=== PATIENT | female | born 1995 | race Caucasian/White ===

== ENCOUNTER 2018-10-14 04:44 | Inpatient (IN) | payer BC ==
[~2018-10-14] VITALS: Ht 162.6 cm; Wt 65.8 kg
[2018-10-14] MEDS ORDERED: PANTOPRAZOLE 40 MG INJ IV STA (06:18)
[2018-10-14] MEDS ORDERED: METOCLOPRAMIDE 10 MG INJ ONE (07:00)
[2018-10-14] MEDS ORDERED: DEXAMETHASONE 4 MG/ML 5 ML INJ ONE (07:00)
[2018-10-14] MEDS ORDERED: ONDANSETRON 4 MG INJ IV PRN ×3 (08:30→12:00)
[2018-10-14] MEDS ORDERED: ACETAMINOPHEN 325 MG TAB PO PRN ×2 (08:30→09:30)
--- NOTE | 2018-10-14 08:52 | ERD ---
ER Documentation Chief Complaint Chief Complaint woke up & been throwing blood since 0300 HPI 23-year-old female who presents to the emergency room complaining of hematemesis. The patient describes multiple episodes of gross bright red blood and clots in her vomit since this morning. The patient denies any alcohol abuse or history of peptic ulcer disease. She does take Motrin occasionally for a dental issue. She denies any fevers or chills, no melena, no abdominal pain. ROS All systems reviewed and are negative except as per history of present illness. Allergies Allergies: Coded Allergies: No Known Allergy (Unverified , 10/14/18) PMhx/Soc Medical and Surgical Hx: pt denies Medical Hx, pt denies Surgical Hx History of Surgery: No Hx Alcohol Use: Yes Hx Substance Use: No Hx Tobacco Use: No Smoking Status: Never smoker FmHx Family History: No diabetes Physical Exam Vitals Vital Signs Date Temp Pulse Resp B/P (MAP) Pulse Ox O2 O2 Flow FiO2 Time Delivery Rate 10/14/18 66 16 129/82 100 Room Air 07:00 (98) 10/14/18 97.5 92 22 139/80 99 04:53 (99) Physical Exam General: Well developed, well nourished, no acute distress Head: Normocephalic, atraumatic. Eyes: Pupils equally reactive, EOM intact ENT: Moist mucous membranes Neck: Supple, no lymphadenopathy Respiratory: Lungs clear bilaterally, no distress Cardiovascular: RRR, no murmurs, rubs, or gallops Abdominal: Soft, non-tender, non-distended, no peritoneal signs : Deferred MSK: No edema, no unilateral swelling, 5/5 strength Neurologic: Alert and oriented, moving all extremities, normal speech, no focal weakness, no cerebellar signs Skin: No rash Psych: Normal mood Result Diagram: 10/14/18 0637 10/14/1837 Results 24 hrs Laboratory Tests Test 10/14/18 06:37 10/14/18 06:44 White Blood Count 10.6 10^3/ul Red Blood Count 4.58 10^6/ul Hemoglobin 14.3 g/dl Hematocrit 42.0 % Mean Corpuscular Volume 91.7 fl Mean Corpuscular Hemoglobin 31.2 pg Mean Corpuscular Hemoglobin Concent 34.0 g/dl Red Cell Distribution Width 12.2 % Platelet Count 200 10^3/UL Mean Platelet Volume 12.0 fl Immature Granulocytes % 0.400 % Neutrophils % 81.2 % Lymphocytes % 11.6 % Monocytes % 5.6 % Eosinophils % 0.8 % Basophils % 0.4 % Nucleated Red Blood Cells % 0.0 /100WBC Immature Granulocytes # 0.040 10^3/ul Neutrophils # 8.6 10^3/ul Lymphocytes # 1.2 10^3/ul Monocytes # 0.6 10^3/ul Eosinophils # 0.1 10^3/ul Basophils # 0.0 10^3/ul Nucleated Red Blood Cells # 0.0 10^3/ul Prothrombin Time 11.8 Sec Prothrombin Time Ratio 0.9 INR International Normalized Ratio 0.86 Activated Partial Thromboplast Time 29.2 Sec Sodium Level 144 mmol/L Potassium Level 3.7 mmol/L Chloride Level 106 mmol/L Carbon Dioxide Level 27 mmol/L Anion Gap 11 Blood Urea Nitrogen 11 mg/dl Creatinine 0.53 mg/dl Est Glomerular Filtrat Rate mL/min > 60 mL/min Glucose Level 91 mg/dl Calcium Level 10.0 mg/dl Total Bilirubin 0.1 mg/dl Direct Bilirubin 0.00 mg/dl Indirect Bilirubin 0.1 mg/dl Aspartate Amino Transf (AST/SGOT) 31 IU/L Alanine Aminotransferase (ALT/SGPT) 24 IU/L Alkaline Phosphatase 76 IU/L Troponin I < 0.012 ng/ml Total Protein 8.1 g/dl Albumin 4.8 g/dl Globulin 3.30 g/dl Albumin/Globulin Ratio 1.45 POC Beta HCG, Qualitative NEGATIVE Current Medications Medications Dose Sig/Michelle Start Time Status Last (Trade) Ordered Route PRN Stop Time Admin Dose Reason Admin 40 mg ONCE STAT 10/14/18 DC 10/14/18 Pantoprazole IV 06:18 06:40 (Protonix 10/14/18 06:19 Iv) Ondansetron 4 mg BRIDGE ORDER 10/14/18 HCl (Zofran PRN IV 08:30 Inj) NAUSEA/VOMITI 10/15/18 08:29 NG 650 mg ER BRIDGE 10/14/18 Acetaminophen PRN PO 08:30 (Tylenol .MILD PAIN 10/15/18 08:29 Tab) 1-3 OR TEMP Procedures/MDM LAB INTERPRETATION: I reviewed the laboratory testing and it shows [no evidence of acute process] MEDICAL DECISION MAKING: Patient presents with gross hematemesis. Unclear etiology, consider gastritis versus NSAID. while the patient is hemodynamically stable the patient has showed me pictures of what appears to be somewhat significant bleeding. For this reason I would recommend inpatient hospitalization as a conservative means to manage this patient. The patient's GBS score is reassuring but again, given the significant bleeding that she is showing me observation and GI consultation is appropriate. ER COURSE: * Given the stability of the patient I do not believe that PPI drip is indicated given the recent evidence showing potential harm and unclear benefit. The patient was given a single dose of PPI here in the emergency room setting. * Patient is stable. Hemoglobin is stable. No indication for transfusion. CONSULTATION: [None] DISPOSITION PLAN: Accepting care team and consultations: I discussed the current laboratory data, diagnostic imaging and emergency care provided. Admitting team: Dr. Lopez Admitting team indication: Insurance directed Departure Diagnosis: Primary Impression: Hematemesis Nausea presence: with nausea Qualified Codes: K92.0 - Hematemesis Condition: Stable PAT KENT MD Oct 14, 2018 08:52
[2018-10-14] MEDS ORDERED: SOD CHLORIDE 0.9% 1,000 ML IV SCH (09:17)
[2018-10-14] MEDS ORDERED: NITROGLYCERIN (SL) 0.4 MG TAB SL PRN (09:30)
[2018-10-14] MEDS ORDERED: MAGNESIUM HYDROXIDE 30ML CUP PO PRN (09:30)
[2018-10-14] MEDS ORDERED: HYDROCODONE/APAP (5/325) TAB PO PRN (09:30)
[2018-10-14] MEDS ORDERED: NACL 0.9% 3 ML SYG IV SCH (09:30)
[2018-10-14] MEDS ORDERED: hydrALAzine 20 MG INJ IV PRN (09:30)
[2018-10-14] MEDS ORDERED: DOCUSATE SODIUM 100 MG CAP PO PRN (09:30)
[2018-10-14] MEDS ORDERED: morphine 2 MG INJ IV PRN (09:30)
[2018-10-14] MEDS ORDERED: ALBUTEROL/IPRATROPIUM (NEB) 3 ML AMP HHN PRN (09:30)
[2018-10-14] MEDS ORDERED: LORAZEPAM 2 MG INJ IV PRN (09:30)
[2018-10-14 09:50] VITALS: Ht 162.6 cm; Wt 65.8 kg
[2018-10-14 10:27] VITALS: BP 131/65; PULSE 80; RESP 18
[2018-10-14] MEDS: PANTOPRAZOLE 40 MG INJ IV SCH ×2 (10:55→19:06)
[2018-10-14] MEDS ORDERED: FENTAnyl 50 MCG/ML VIAL ONE (11:26)
[2018-10-14] MEDS ORDERED: LIDOCAINE 2% (SDV) 5 ML INJ ONE (11:26)
[2018-10-14] MEDS ORDERED: PROPOFOL 20 ML ONE (11:26)
[2018-10-14] MEDS ORDERED: MIDAZOLAM 1 MG/ML 2 ML INJ ONE (11:51)
--- NOTE | 2018-10-14 11:56 | PREAC ---
Date/Time of Note Date/Time of Note DATE: 10/14/18 TIME: 11:55 Anesthesia Eval and Record Evaluation Time Pre-Procedure Interview DATE: 10/14/18 TIME: 11:55 Age 23 Sex female NPO: 8 hrs Preoperative diagnosis upper GI bleed Planned procedure EGD Past Medical History Past Medical History: Includes Hepatic: Alcohol abuse GI: GERD Surgery & Anesthesia Issues No known issue Meds Anticoagulation: No Beta Mert within 24 hr: No Reason Beta Mert not given: Pt. not on B-Mert No Active Prescriptions or Reported Meds Current Medications Ondansetron HCl (Zofran Inj) 4 mg BRIDGE ORDER PRN IV NAUSEA/VOMITING; Start 10/14/18 at 08:30; Stop 10/15/18 at 08:29 Acetaminophen (Tylenol Tab) 650 mg ER BRIDGE PRN PO .MILD PAIN 1-3 OR TEMP; Start 10/14/18 at 08:30; Stop 10/15/18 at 08:29 IV Flush (NS 3 ml) 3 ml PER PROTOCOL IV ; Start 10/14/18 at 09:30 Ondansetron HCl (Zofran Inj) 4 mg Q6H PRN IV NAUSEA/VOMITING; Start 10/14/18 at 09:30 Acetaminophen (Tylenol Tab) 650 mg Q6H PRN PO .PAIN 1-3 OR TEMP; Start 10/14/18 at 09:30 Acetaminophen/ Hydrocodone Bitart ([place] (5/325)) 1 tab Q6H PRN PO .MOD PAIN 4- 6; Start 10/14/18 at 09:30 Morphine Sulfate (morphine) 2 mg Q4H PRN IV .SEVERE PAIN 7-10; Start 10/14/18 at 09:30 Docusate Sodium (Colace) 100 mg Q12H PRN PO .CONSTIPATION; Start 10/14/18 at 09:30 Magnesium Hydroxide (Milk Of Mag) 30 ml DAILY PRN PO .CONSTIPATION; Start 10/14/18 at 09:30 Pantoprazole (Protonix Iv) 40 mg BID@0600,1800 IV Last administered on 10/14/18at 10:55; Admin Dose 40 MG; Start 10/14/18 at 09:30 Lorazepam (Ativan) 0.5 mg Q6H PRN IV ANXIETY; Start 10/14/18 at 09:30 Sodium Chloride 1,000 ml @ 100 mls/hr Q10H IV Last administered on 10/14/18at 10:55; Admin Dose 100 MLS/HR; Start 10/14/18 at 09:17 Albuterol/ Ipratropium (Duoneb) 3 ml Q4H RESP THERAPY PRN HHN SHORTNESS OF BR EATH; Start 10/14/18 at 09:30 Hydralazine HCl (Apresoline) 10 mg Q6H PRN IV ELEVATED BLOOD PRESSURE; Start 10/14/18 at 09:30 Nitroglycerin (Nitroglycerin (Sl Tab) 0.4 Mg) 1 tab Q5M PRN SL ANGINA; Start 10/14/18 at 09:30 Meds reviewed: Yes Allergies Coded Allergies: No Known Allergy (Unverified , 10/14/18) Allergies Reviewed: Yes Labs/Studies Labs Reviewed: Reviewed by anesthesiologist Result Diagram: 10/14/18 0637 10/14/18 0637 Laboratory Tests 10/14/18 06:37 Blood Bank Test 10/14/18 06:37 Antibody Screen NEGATIVE Blood Type O POSITIVE test: Negative Pre-procedure Exam Last vitals Vital Signs Date Temp Pulse Resp B/P (MAP) Pulse Ox O2 O2 Flow FiO2 Time Delivery Rate 10/14/18 97.8 80 18 131/65 99 Room Air 10:27 (87) Airway: Adequate mouth opening, Adequate thyromental dist Mallampati: Mallampati III Teeth: Normal Lung: Normal Heart: Normal ASA Physical Status ASA physical status: 2 Emergency: E Planned Anesthetic General/MAC: MAC Planned Pain Management Parenteral pain med Pre-operative Attestations Prior to commencing anesthesia and surgery, the patient was re-evaluated, there was verification of: *The patient's identity *The results of appropriate recent lab work and preoperative vital signs *The above evaluation not changing prior to induction *Anesthetic plan, risk benefits, alternative and complications discussed with patient/family; questions answered; patient/family understands, accepts and wishes to proceed. JOSE CHRISTIANSON MD Oct 14, 2018 11:56
[2018-10-14] MEDS ORDERED: ONDANSETRON 4 MG INJ ONE (11:59)
[2018-10-14] MEDS ORDERED: FENTAnyl 50 MCG/ML VIAL IV PRN (12:00)
[2018-10-14] MEDS ORDERED: DIPHENHYDRAMINE 50 MG INJ IV PRN (12:00)
[2018-10-14] MEDS ORDERED: MEPERIDINE 25 MG INJ IV PRN (12:00)
[2018-10-14] MEDS ORDERED: LEVALBUTEROL (NEB) 1.25 MG/0.5 ML AMP HHN PRN (12:00)
[2018-10-14] MEDS ORDERED: HYDROmorphONE 1 MG/5 ML IV SYRINGE IV PRN (12:00)
[2018-10-14] MEDS ORDERED: MIDAZOLAM 1 MG/ML 2 ML INJ IV PRN (12:00)
[2018-10-14 12:35] VITALS: BP 119/55; PULSE 90
[2018-10-14 12:40] VITALS: BP 112/55; PULSE 77
--- NOTE | 2018-10-14 12:40 | OPPN ---
Date/Time of Note Date/Time of Note DATE: 10/14/18 TIME: 12:37 Proc Note GI Procedure Date 10/14/18 Indication: diagnostic, treatment Pre-procedure Diagnosis Hematemesis Post-procedure Diagnosis Impression: Moderate distal esophagitis. Moderate gastritis. Rule out H. pylori infection. Biopsies obtained. Otherwise normal EGD. Plan: Continue PPI twice daily. Reglan as needed for nausea and vomiting. Monitor H&H and transfuse as necessary. Advance diet as tolerated. Procedure Performed: Endoscopy (With biopsies) Surgeon ARLET TINEO MD See signature line Chain Offbearer none Anesthesia Type: MAC Tourniquet Time none EBL none Transfusion required none Biopsy 1: Gastric body and antrum. Grafts/Implants none Tubes/Drains none Complication(s) none Disposition: PACU Procedure Description After informed consent, with the patient/relatives understanding the procedure, its indications, potential risks and complications, including but not limited to: allergic reaction, bleeding, perforation or infection, and after all pertinent questions were answered to the patients satisfaction, the patient/relatives signed witnessed informed consent. Following this, premedication was administered slowly IV push under careful cardiovascular and respiratory monitoring with pulse oximetry, automatic blood pressure, and hall monitor. Once the sedative effect was achieved the patient was place in the left lateral decubitus, the panendoscope was introduced and advanced under visual control. Careful examination of the upper gastrointestinal tract, both on insertion as well as withdrawal of the instrument disclosing the following findings: ESOPHAGUS: the mucosa of the entire esophagus was carefully examined and showed the following findings: There is mild erythema of the mucosa of the distal esophagus. Otherwise the mucosa appears within normal limits. There is no evidence of varices, neoplasm, or stricture. No Hiatal Hernia identified. STOMACH: Upon entrance to the stomach air was insufflated, the gastric pittman distended normally. The mucosa of the fundus, body and antrum of the stomach was carefully examined both head-on and on retroflexion, and showed the following findings: There is moderate erythema of the mucosa of the body and antrum the stomach. Biopsies were obtained to rule out H. pylori infection. Otherwise the mucosa appears within normal limits with no abnormalities. There is no evidence of ulcers or neoplasm. PYLORUS: The pylorus was carefully examined and showed the following findings: the pylorus appears patent and within normal limits, with no evidence of gastric outlet obstruction. DUODENUM: The duodenal mucosa was carefully examined in the duodenal bulb as well as the second portion of the duodenum and showed the following findings: the mucosa appears unremarkable with no evidence of duodenitis, ulcer or neoplasm. Copies To: CC: ARLET TINEO MD ; ARLET TINEO MD Oct 14, 2018 12:40
[2018-10-14 12:50] VITALS: BP 112/68; PULSE 71; RESP 16
--- NOTE | 2018-10-14 13:02 | CONS ---
Assessment/Plan Assessment/Plan Hospital Course (Demo Recall) Assessment: Hematemesis Rule out GERD/PUD/gastritis Nonsteroidal inflammatory use EtOH use Recent dental work Plan: EGD, procedure was explained in detail including risks, benefits alternatives. Agreeable to proceed. Further recommendations depend on the findings. Consultation Date/Type/Reason Admit Date/Time Oct 14, 2018 at 08:23 Date of Consultation: Oct 14, 2018 Type of Consult Gastroenterology Reason for Consultation Hematemesis Date/Time of Note DATE: 10/14/18 TIME: 12:57 Hx of Present Illness 23-year-old female hospitalized with recurrent episodes of hematemesis and moderate amounts. The patient had been taking ibuprofen for dental work and had some EtOH intake the night prior to the onset of hematemesis. There has been no melena. Her hemoglobin is stable. Patient will be evaluated endoscopically to determine the source of hematemesis. Review of Systems: [A 12 system, review was conducted and is negative except as noted in the HPI or here.] Gastrointestinal and liver: [As noted in HPI] Past Medical History Medical History: no pertinent history Home Meds No Active Prescriptions or Reported Meds Medications Current Medications Ondansetron HCl (Zofran Inj) 4 mg BRIDGE ORDER PRN IV NAUSEA/VOMITING; Start 10/14/18 at 08:30; Stop 10/15/18 at 08:29 Acetaminophen (Tylenol Tab) 650 mg ER BRIDGE PRN PO .MILD PAIN 1-3 OR TEMP; S tart 10/14/18 at 08:30; Stop 10/15/18 at 08:29 IV Flush (NS 3 ml) 3 ml PER PROTOCOL IV ; Start 10/14/18 at 09:30 Ondansetron HCl (Zofran Inj) 4 mg Q6H PRN IV NAUSEA/VOMITING; Start 10/14/18 at 09:30 Acetaminophen (Tylenol Tab) 650 mg Q6H PRN PO .PAIN 1-3 OR TEMP; Start 10/14/18 at 09:30 Acetaminophen/ Hydrocodone Bitart ([place] (5/325)) 1 tab Q6H PRN PO .MOD PAIN 4- 6; Start 10/14/18 at 09:30 Morphine Sulfate (morphine) 2 mg Q4H PRN IV .SEVERE PAIN 7-10; Start 10/14/18 at 09:30 Docusate Sodium (Colace) 100 mg Q12H PRN PO .CONSTIPATION; Start 10/14/18 at 09:30 Magnesium Hydroxide (Milk Of Mag) 30 ml DAILY PRN PO .CONSTIPATION; Start 10/14/18 at 09:30 Pantoprazole (Protonix Iv) 40 mg BID@0600,1800 IV Last administered on 10/14/18at 10:55; Admin Dose 40 MG; Start 10/14/18 at 09:30 Lorazepam (Ativan) 0.5 mg Q6H PRN IV ANXIETY; Start 10/14/18 at 09:30 Sodium Chloride 1,000 ml @ 100 mls/hr Q10H IV Last administered on 10/14/18at 10:55; Admin Dose 100 MLS/HR; Start 10/14/18 at 09:17 Albuterol/ Ipratropium (Duoneb) 3 ml Q4H RESP THERAPY PRN HHN SHORTNESS OF BREATH; Start 10/14/18 at 09:30 Hydralazine HCl (Apresoline) 10 mg Q6H PRN IV ELEVATED BLOOD PRESSURE; Start 10/14/18 at 09:30 Nitroglycerin (Nitroglycerin (Sl Tab) 0.4 Mg) 1 tab Q5M PRN SL ANGINA; Start 10/14/18 at 09:30 Hydromorphone HCl (Dilaudid) 0.2 mg PACU PRN IV MILD PAIN 1-3; Start 10/14/18 at 12:00; Stop 10/14/18 at 16:00 Fentanyl (Sublimaze) 25 mcg PACU ORDER PRN IV MILD PAIN 1-3; Start 10/14/18 at 12:00; Stop 10/14/18 at 16:00 Ondansetron HCl (Zofran Inj) 4 mg PACU ORDER PRN IV NAUSEA/VOMITING; Start 10/14/18 at 12:00; Stop 10/14/18 at 16:00 Levalbuterol (Xopenex Neb) 1.25 mg PACU ORDER PRN HHN .WHEEZING; Start 10/14/18 at 12:00; Stop 10/14/18 at 16:00 Meperidine HCl (Demerol) 25 mg PACU ORDER PRN IV .RIGORS; Start 10/14/18 at 12:00; Stop 10/14/18 at 16:00 Diphenhydramine HCl (Benadryl) 25 mg PACU ORDER PRN IV .PRURITUS; Start 10/14/18 at 12:00; Stop 10/14/18 at 16:00 Midazolam HCl (Versed) 0.5 mg PACU ORDER PRN IV .ANXIETY; Start 10/14/18 at 12:00; Stop 10/14/18 at 16:00 Metoclopramide HCl (Reglan) 10 mg Q6 IV ; Start 10/14/18 at 13:00 Allergies: Coded Allergies: No Known Allergy (Unverified , 10/14/18) Past Surgical History Past Surgical Hx: no surgical history Family History Significant Family History: no pertinent family hx Social History Alcohol Use: other Smoking Status: Never smoker Drug Use: marijuana Exam/Review of Systems Exam Vitals Vital Signs Date Temp Pulse Resp B/P (MAP) Pulse Ox O2 O2 Flow FiO2 Time Delivery Rate 10/14/18 98.2 71 16 112/68 99 Nasal 2.0 12:50 (83) Cannula Exam PHYSICAL EXAMINATION: GENERAL: Well developed, well nourished, alert & oriented x 3, in no acute distress SKIN: No lesions, no stigmata chronic liver disease, no evidence of bleeding diathesis LYMPHATIC: No palpable lymphadenopathy. HEAD: Normocephalic, atraumatic, no tenderness. EYES: Pupils equal reactive to light and accommodation, full extraocular movements, sclera clear, non-icteric, no discharge. EARS/NOSE AND THROAT: Ears normal, nose normal, oropharynx normal, oral membranes well hydrated without lesions. NECK: Supple, no masses, thyroid normal, JVP within normal limits, carotids normal without bruits. CHEST: Inspection within normal limits. CARDIOVASCULAR: Heart: Regular rate and rhythm, no murmurs, gallops or rubs. Peripheral pulses present within normal limits, no cyanosis, clubbing or edemas. No pulsatile abdominal mass RESPIRATORY: Lungs clear to auscultation and percussion, no wheezing, no rubs GASTROINTESTINAL AND LIVER: Abdomen: Soft, moderate epigastric tenderness, non- distended, no hernias, no masses, no organomegaly, no ascites, no guarding, no rebound tenderness, normoactive bowel sounds. Rectal: Deferred. GENITOURINARY: [Female genitalia within normal limits.] EXTREMITIES: No cyanosis, clubbing or edema. Results Result Diagram: 10/14/18 0637 10/14/18 0637 Results 24hrs Laboratory Tests Test 10/14/18 06:37 10/14/18 06:44 White Blood Count 10.6 Red Blood Count 4.58 Hemoglobin 14.3 Hematocrit 42.0 Mean Corpuscular Volume 91.7 Mean Corpuscular Hemoglobin 31.2 Mean Corpuscular Hemoglobin Concent 34.0 Red Cell Distribution Width 12.2 Platelet Count 200 Mean Platelet Volume 12.0 H Immature Granulocytes % 0.400 Neutrophils % 81.2 H Lymphocytes % 11.6 L Monocytes % 5.6 Eosinophils % 0.8 Basophils % 0.4 Nucleated Red Blood Cells % 0.0 Immature Granulocytes # 0.040 H Neutrophils # 8.6 H Lymphocytes # 1.2 Monocytes # 0.6 Eosinophils # 0.1 Basophils # 0.0 Nucleated Red Blood Cells # 0.0 Prothrombin Time 11.8 L Prothrombin Time Ratio 0.9 INR International Normalized Ratio 0.86 Activated Partial Thromboplast Time 29.2 Sodium Level 144 Potassium Level 3.7 Chloride Level 106 Carbon Dioxide Level 27 Anion Gap 11 Blood Urea Nitrogen 11 Creatinine 0.53 Est Glomerular Filtrat Rate mL/min > 60 Glucose Level 91 Calcium Level 10.0 Total Bilirubin 0.1 L Direct Bilirubin 0.00 Indirect Bilirubin 0.1 Aspartate Amino Transf (AST/SGOT) 31 Alanine Aminotransferase (ALT/SGPT) 24 Alkaline Phosphatase 76 Troponin I < 0.012 Total Protein 8.1 Albumin 4.8 Globulin 3.30 H Albumin/Globulin Ratio 1.45 Free Thyroxine 1.16 POC Beta HCG, Qualitative NEGATIVE Medications Medication Current Medications Ondansetron HCl (Zofran Inj) 4 mg BRIDGE ORDER PRN IV NAUSEA/VOMITING; Start 10/14/18 at 08:30; Stop 10/15/18 at 08:29 Acetaminophen (Tylenol Tab) 650 mg ER BRIDGE PRN PO .MILD PAIN 1-3 OR TEMP; Start 10/14/18 at 08:30; Stop 10/15/18 at 08:29 IV Flush (NS 3 ml) 3 ml PER PROTOCOL IV ; Start 10/14/18 at 09:30 Ondansetron HCl (Zofran Inj) 4 mg Q6H PRN IV NAUSEA/VOMITING; Start 10/14/18 at 09:30 Acetaminophen (Tylenol Tab) 650 mg Q6H PRN PO .PAIN 1-3 OR TEMP; Start 10/14/18 at 09:30 Acetaminophen/ Hydrocodone Bitart ([place] (5/325)) 1 tab Q6H PRN PO .MOD PAIN 4- 6; Start 10/14/18 at 09:30 Morphine Sulfate (morphine) 2 mg Q4H PRN IV .SEVERE PAIN 7-10; Start 10/14/18 at 09:30 Docusate Sodium (Colace) 100 mg Q12H PRN PO .CONSTIPATION; Start 10/14/18 at 09:30 Magnesium Hydroxide (Milk Of Mag) 30 ml DAILY PRN PO .CONSTIPATION; Start 10/14/18 at 09:30 Pantoprazole (Protonix Iv) 40 mg BID@0600,1800 IV Last administered on 10/14/18at 10:55; Admin Dose 40 MG; Start 10/14/18 at 09:30 Lorazepam (Ativan) 0.5 mg Q6H PRN IV ANXIETY; Start 10/14/18 at 09:30 Sodium Chloride 1,000 ml @ 100 mls/hr Q10H IV Last administered on 10/14/18at 10:55; Admin Dose 100 MLS/HR; Start 10/14/18 at 09:17 Albuterol/ Ipratropium (Duoneb) 3 ml Q4H RESP THERAPY PRN HHN SHORTNESS OF BREATH; Start 10/14/18 at 09:30 Hydralazine HCl (Apresoline) 10 mg Q6H PRN IV ELEVATED BLOOD PRESSURE; Start 10/14/18 at 09:30 Nitroglycerin (Nitroglycerin (Sl Tab) 0.4 Mg) 1 tab Q5M PRN SL ANGINA; Start 10/14/18 at 09:30 Hydromorphone HCl (Dilaudid) 0.2 mg PACU PRN IV MILD PAIN 1-3; Start 10/14/18 at 12:00; Stop 10/14/18 at 16:00 Fentanyl (Sublimaze) 25 mcg PACU ORDER PRN IV MILD PAIN 1-3; Start 10/14/18 at 12:00; Stop 10/14/18 at 16:00 Ondansetron HCl (Zofran Inj) 4 mg PACU ORDER PRN IV NAUSEA/VOMITING; Start 10/14/18 at 12:00; Stop 10/14/18 at 16:00 Levalbuterol (Xopenex Neb) 1.25 mg PACU ORDER PRN HHN .WHEEZING; Start 10/14/18 at 12:00; Stop 10/14/18 at 16:00 Meperidine HCl (Demerol) 25 mg PACU ORDER PRN IV .RIGORS; Start 10/14/18 at 12:00; Stop 10/14/18 at 16:00 Diphenhydramine HCl (Benadryl) 25 mg PACU ORDER PRN IV .PRURITUS; Start 10/14/18 at 12:00; Stop 10/14/18 at 16:00 Midazolam HCl (Versed) 0.5 mg PACU ORDER PRN IV .ANXIETY; Start 10/14/18 at 12:00; Stop 10/14/18 at 16:00 Metoclopramide HCl (Reglan) 10 mg Q6 IV ; Start 10/14/18 at 13:00 ARLET TINEO MD Oct 14, 2018 13:02
[2018-10-14 13:30] VITALS: BP 112/79; PULSE 78; RESP 16
--- NOTE | 2018-10-14 14:24 | HP ---
Date/Time of Note Date/Time of Note DATE: 10/14/18 TIME: 14:15 Assessment/Plan VTE Prophylaxis Risk score (from Ns)>0 risk: 0 SCD applied (from [facility] [place]): Yes Pharmacological prophylaxis: NA/contraindicated Pharm contraindication: bleeding Lines/Catheters IV Catheter Type (from [facility]): Peripheral IV Urinary Cath still in place: No Assessment/Plan Hospital Course Assessment and plan: 23-year-old female with hematemesis occurring earlier today with recent Motrin use, rule out gastritis versus PUD versus other. # Hematemesis: Again patient seen by GI team earlier today, and underwent EGD results are still pending for that. -Follow-up results of EGD, continue PPI, continue to hold all anticoagulant -Continue IV fluids #DVT prophylaxis, ambulation, SCDs Result Diagram: 10/14/1837 10/14/18 0637 Results 24hrs Laboratory Tests Test 10/14/18 06:37 10/14/18 06:44 White Blood Count 10.6 Red Blood Count 4.58 Hemoglobin 14.3 Hematocrit 42.0 Mean Corpuscular Volume 91.7 Mean Corpuscular Hemoglobin 31.2 Mean Corpuscular Hemoglobin Concent 34.0 Red Cell Distribution Width 12.2 Platelet Count 200 Mean Platelet Volume 12.0 H Immature Granulocytes % 0.400 Neutrophils % 81.2 H Lymphocytes % 11.6 L Monocytes % 5.6 Eosinophils % 0.8 Basophils % 0.4 Nucleated Red Blood Cells % 0.0 Immature Granulocytes # 0.040 H Neutrophils # 8.6 H Lymphocytes # 1.2 Monocytes # 0.6 Eosinophils # 0.1 Basophils # 0.0 Nucleated Red Blood Cells # 0.0 Prothrombin Time 11.8 L Prothrombin Time Ratio 0.9 INR International Normalized Ratio 0.86 Activated Partial Thromboplast Time 29.2 Sodium Level 144 Potassium Level 3.7 Chloride Level 106 Carbon Dioxide Level 27 Anion Gap 11 Blood Urea Nitrogen 11 Creatinine 0.53 Est Glomerular Filtrat Rate mL/min > 60 Glucose Level 91 Calcium Level 10.0 Total Bilirubin 0.1 L Direct Bilirubin 0.00 Indirect Bilirubin 0.1 Aspartate Amino Transf (AST/SGOT) 31 Alanine Aminotransferase (ALT/SGPT) 24 Alkaline Phosphatase 76 Troponin I < 0.012 Total Protein 8.1 Albumin 4.8 Globulin 3.30 H Albumin/Globulin Ratio 1.45 Free Thyroxine 1.16 POC Beta HCG, Qualitative NEGATIVE HPI/ROS Admit Date/Time Admit Date/Time Oct 14, 2018 at 08:23 Hx of Present Illness 23-year-old female with no significant past medical history who presented to the emergency room complaining of hematemesis. The patient describes multiple episodes of bright red blood and clots in her vomit since this morning. The patient denies any alcohol abuse or history of peptic ulcer disease. Apparently patient had been taking Motrin occasionally recently for a tooth issue, approximately multiple times a day for the last week. She denies any fevers or chills, no melena, no abdominal pain. When she came in today she was found with stable hemoglobin 14 range. Call was made out to GI team to come evaluate the patient and she just underwent EGD a few moments ago. Presently denies any upper or lower GI bleeding. PMH/Family/Social Past Medical History Medical History: no pertinent history Medications Current Medications Ondansetron HCl (Zofran Inj) 4 mg BRIDGE ORDER PRN IV NAUSEA/VOMITING; Start 10/14/18 at 08:30; Stop 10/15/18 at 08:29 Acetaminophen (Tylenol Tab) 650 mg ER BRIDGE PRN PO .MILD PAIN 1-3 OR TEMP; Start 10/14/18 at 08:30; Stop 10/15/18 at 08:29 IV Flush (NS 3 ml) 3 ml PER PROTOCOL IV ; Start 10/14/18 at 09:30 Ondansetron HCl (Zofran Inj) 4 mg Q6H PRN IV NAUSEA/VOMITING; Start 10/14/18 at 09:30 Acetaminophen (Tylenol Tab) 650 mg Q6H PRN PO .PAIN 1-3 OR TEMP; Start 10/14/18 at 09:30 Acetaminophen/ Hydrocodone Bitart ([place] (5/325)) 1 tab Q6H PRN PO .MOD PAIN 4- 6; Start 10/14/18 at 09:30 Morphine Sulfate (morphine) 2 mg Q4H PRN IV .SEVERE PAIN 7-10; Start 10/14/18 at 09:30 Docusate Sodium (Colace) 100 mg Q12H PRN PO .CONSTIPATION; Start 10/14/18 at 09:30 Magnesium Hydroxide (Milk Of Mag) 30 ml DAILY PRN PO .CONSTIPATION; Start 10/14/18 at 09:30 Pantoprazole (Protonix Iv) 40 mg BID@0600,1800 IV Last administered on 10/14/18at 10:55; Admin Dose 40 MG; Start 10/14/18 at 09:30 Lorazepam (Ativan) 0.5 mg Q6H PRN IV ANXIETY; Start 10/14/18 at 09:30 Sodium Chloride 1,000 ml @ 100 mls/hr Q10H IV Last administered on 10/14/18at 10:55; Admin Dose 100 MLS/HR; Start 10/14/18 at 09:17 Albuterol/ Ipratropium (Duoneb) 3 ml Q4H RESP THERAPY PRN HHN SHORTNESS OF BREATH; Start 10/14/18 at 09:30 Hydralazine HCl (Apresoline) 10 mg Q6H PRN IV ELEVATED BLOOD PRESSURE; Start 10/14/18 at 09:30 Nitroglycerin (Nitroglycerin (Sl Tab) 0.4 Mg) 1 tab Q5M PRN SL ANGINA; Start 10/14/18 at 09:30 Hydromorphone HCl (Dilaudid) 0.2 mg PACU PRN IV MILD PAIN 1-3; Start 10/14/18 at 12:00; Stop 10/14/18 at 16:00 Fentanyl (Sublimaze) 25 mcg PACU ORDER PRN IV MILD PAIN 1-3; Start 10/14/18 at 12:00; Stop 10/14/18 at 16:00 Ondansetron HCl (Zofran Inj) 4 mg PACU ORDER PRN IV NAUSEA/VOMITING; Start at 12:00; Stop 10/14/18 at 16:00 Levalbuterol (Xopenex Neb) 1.25 mg PACU ORDER PRN HHN .WHEEZING; Start 10/14/18 at 12:00; Stop 10/14/18 at 16:00 Meperidine HCl (Demerol) 25 mg PACU ORDER PRN IV .RIGORS; Start 10/14/18 at 12:00; Stop 10/14/18 at 16:00 Diphenhydramine HCl (Benadryl) 25 mg PACU ORDER PRN IV .PRURITUS; Start 10/14/18 at 12:00; Stop 10/14/18 at 16:00 Midazolam HCl (Versed) 0.5 mg PACU ORDER PRN IV .ANXIETY; Start 10/14/18 at 12:00; Stop 10/14/18 at 16:00 Metoclopramide HCl (Reglan) 10 mg Q6 IV ; Start 10/14/18 at 13:00 Coded Allergies: No Known Allergy (Unverified , 10/14/18) Past Surgical History Past Surgical Hx: no surgical history Family History Significant Family History: no pertinent family hx Social History Alcohol Use: other Smoking Status: Never smoker Drug Use: marijuana Exam/Review of Systems Vital Signs Vitals Vital Signs Date Temp Pulse Resp B/P (MAP) Pulse Ox O2 O2 Flow FiO2 Time Delivery Rate 10/14/18 98.2 71 16 112/68 99 Nasal 2.0 12:50 (83) Cannula Exam Exam GENERAL: Lying in bed, no acute distress HEAD: Normocephalic, atraumatic, no tenderness. EYES: Pupils equal reactive to light and accommodation, full extraocular movements EARS/NOSE AND THROAT: Ears normal, nose normal, oropharynx normal, oral membranes well hydrated without lesions. NECK: Supple, no masses CHEST: Inspection within normal limits. CARDIOVASCULAR: Heart: Regular rate and rhythm, no murmurs, gallops or rubs. RESPIRATORY: Lungs clear to auscultation and percussion, no wheezing, no rubs GASTROINTESTINAL: Abdomen: Soft, moderate epigastric tenderness, non-distended, no hernias, no masses, no organomegaly, no ascites, no guarding, no rebound tenderness EXTREMITIES: No cyanosis, clubbing or edema. ARIEL GONZALEZ Oct 14, 2018 14:24
[2018-10-14] MEDS: METOCLOPRAMIDE 10 MG INJ IV SCH ×2 (14:34→19:06)
--- NOTE | 2018-10-14 20:46 | PAC ---
Date/Time of Note Date/Time of Note DATE: 10/14/18 TIME: 20:46 Post-Anesthesia Notes Post-Anesthesia Note Last documented vital signs Vital Signs Date Temp Pulse Resp B/P (MAP) Pulse Ox O2 O2 Flow FiO2 Time Delivery Rate 10/14/18 98.2 78 16 112/79 98 Room Air 13:30 (90) 10/14/18 2.0 12:50 Activity: WNL Respiratory function: WNL Cardiovascular function: WNL Mental status: Baseline Pain reasonably controlled: Yes Hydration appropriate: Yes Nausea/Vomiting absent: Yes JOSE CHRISTIANSON MD Oct 14, 2018 20:46
--- NOTE | 2018-10-15 12:40 | DS ---
Date/Time of Note Date/Time of Note DATE: 10/15/18 TIME: 12:40 Discharge Summary Admission/Discharge Info Admit Date/Time Oct 14, 2018 at 08:23 Discharge Date/Time Oct 14, 2018 at 19:58 Discharge Diagnosis Pt left AMA Patient Condition: Serious Hx of Present Illness 23-year-old female with no significant past medical history who presented to the emergency room complaining of hematemesis. The patient describes multiple episodes of bright red blood and clots in her vomit since this morning. The patient denies any alcohol abuse or history of peptic ulcer disease. Apparently patient had been taking Motrin occasionally recently for a tooth issue, approximately multiple times a day for the last week. She denies any fevers or chills, no melena, no abdominal pain. When she came in today she was found with stable hemoglobin 14 range. Call was made out to GI team to come evaluate the patient and she just underwent EGD a few moments ago. Presently denies any upper or lower GI bleeding. Hospital Course Assessment and plan: 23-year-old female with hematemesis occurring earlier today with recent Motrin use, rule out gastritis versus PUD versus other. # Hematemesis: Again patient seen by GI team earlier today, and underwent EGD results are still pending for that. -Follow-up results of EGD, continue PPI, continue to hold all anticoagulant -Continue IV fluids #DVT prophylaxis, ambulation, SCDs Home Meds No Active Prescriptions or Reported Meds Primary Care Provider Care Physician No Primary ARIEL GONZALEZ Oct 15, 2018 12:40
== END 2018-10-14 19:58 | disposition left against medical advice (07) | DRG 379 ==
LOC: E/R 04:44 → PP2 08:23
PROVIDERS: ADMIT Hospitalist; ATTEND Hospitalist
PROC: 0DB78ZX Excision of Stomach, Pylorus, Via Natural or Artificial Opening Endoscopic, Diagnostic (ICD-10-PCS; principal; 2018-10-14 10:30)
DX: K92.0 Hematemesis (principal); K20.9 Esophagitis, unspecified; K29.70 Gastritis, unspecified, without bleeding; Z79.1 Long term (current) use of non-steroidal anti-inflammatories (NSAID); Z72.89 Other problems related to lifestyle
CPT/HCPCS: 36415; 80053; 81025; 84439; 84484; 85025; 85610; 85730; 86850; 86900; 86901; 88305; 88312; 93005; 96374; C9113; J1100; J2250; J2405; J2765; J3010; J7030